=== PATIENT | female | born 1955 | race Caucasian/White ===

== ENCOUNTER 2016-09-12 08:43 | Day surgery (SDC) | payer BC ==
[~2016-09-12] VITALS: Ht 162.6 cm; Wt 79.4 kg
[~2016-09-12 08:43] MED LIST: ADVAIR 100/501 DISK IH; ALPRAZOLAM0.25 M2 PO; AMBIEN5 MG PO; ASPIR-TRIN325 M1 PO; Advair 100/50 Diskus IH; Ambien PO; B COMPLETE1 EACH PO; BACTRIM,SEPT1 TABLET PO; CELEBREX200 MG PO; CENTRUM SILV1 TABLE1 PO; CLARITIN10 M3 PO; COLACE100 MG PO; COZAAR100 MG PO; CYANOCOBALAM1000 MCG SL; CYMBALTA30 MG PO; CYMBALTA60 MG PO; Cozaar PO; Cymbalta PO; DILAUDID2 MG PO; Duragesic TD; ENDOCET 5-3251 EACH PO; ETHINYL ESTRADIOL PO; Ecotrin PO; FEOSOL325 MG PO; Glucophage PO; LIDODERM 5% P1 PATCH TD; LIPITOR80 MG PO; LYRICA75 MG PO; Levothroid,Synthroid PO; Lipitor PO; MOTRIN800 MG PO; NORETHINDRONE ACETATE PO; Proventil,Ventolin H IH; SENOKOT S,PE1 TABLET PO; Senokot S,Pericolace PO; VICODIN 5-3001 EACH PO; VITAMIN D31000 UNIT PO; Vicodin,Norco 5/325 PO; Vitamin D PO; celeBREX PO
== END 2016-09-12 10:35 | disposition home or self-care (01) ==
LOC: PAIN 08:43 → SDC 09:15 → PAIN 10:35
PROC: 3E0S33Z Introduction of Anti-inflammatory into Epidural Space, Percutaneous Approach (ICD-10-PCS; principal; 2016-09-12)
DX: M54.16 Radiculopathy, lumbar region (principal); F41.9 Anxiety disorder, unspecified; G62.9 Polyneuropathy, unspecified; M96.1 Postlaminectomy syndrome, not elsewhere classified; M19.90 Unspecified osteoarthritis, unspecified site; E78.5 Hyperlipidemia, unspecified; J45.909 Unspecified asthma, uncomplicated; G89.29 Other chronic pain; I10 Essential (primary) hypertension; Z82.0 Family history of epilepsy and other diseases of the nervous system; Z82.49 Family history of ischemic heart disease and other diseases of the circulatory system
CPT/HCPCS: J1100; J2250; J3010

== ENCOUNTER 2016-12-09 10:54 | Day surgery (SDC) | payer BC ==
[~2016-12-09] VITALS: Ht 162.6 cm; Wt 79.4 kg
== END 2016-12-09 12:32 | disposition home or self-care (01) ==
LOC: PAIN 10:54 → SDC 11:30 → PAIN 11:30
DX: M54.16 Radiculopathy, lumbar region (principal); G89.29 Other chronic pain; M96.1 Postlaminectomy syndrome, not elsewhere classified; M50.10 Cervical disc disorder with radiculopathy, unspecified cervical region; I10 Essential (primary) hypertension; E03.9 Hypothyroidism, unspecified; J45.909 Unspecified asthma, uncomplicated; E78.5 Hyperlipidemia, unspecified; E55.9 Vitamin D deficiency, unspecified
CPT/HCPCS: J1030; J2250; J3010

== ENCOUNTER 2017-04-13 09:22 | Emergency (ER) | payer BC ==
[~2017-04-13] VITALS: Ht 162.6 cm; Wt 82.0 kg
[2017-04-13] MEDS ORDERED: MOTRIN600 MG PO (13:45)
[2017-04-13] MEDS ORDERED: NORCO 5/3251 TABLET PO (13:45)
[2017-04-13 14:00] VITALS: BP 148/78
== END 2017-04-13 14:00 | disposition home or self-care (01) ==
LOC: EME 09:22
DX: M71.21 Synovial cyst of popliteal space [Baker], right knee (principal); J45.909 Unspecified asthma, uncomplicated; F32.9 Major depressive disorder, single episode, unspecified; F41.9 Anxiety disorder, unspecified; Z95.5 Presence of coronary angioplasty implant and graft; Z96.653 Presence of artificial knee joint, bilateral
CPT/HCPCS: 93971; 99281; 99284